=== PATIENT | female | born 2000 | race Caucasian/White ===

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

== ENCOUNTER 2018-03-07 13:58 | Emergency (ER) | payer BC, OTHER ==
[~2018-03-07] VITALS: Ht 160 cm; Wt 94.3 kg
[~2018-03-07 13:58] MED LIST changes: +FLUO10CA26 PO; -INSU100C; +INSU100C SQ; +INSU300I SQ; -LANTUS SOLOSTAR 100 UNIT/ML; +LIRA0.6P2 SQ
--- NOTE | 2018-03-07 14:19 | NUR ---
CIRO BOBBY AT BEDSIDE FOR MSE.
--- NOTE | 2018-03-07 14:24 | NUR ---
Patient discharged to home in stable conditon. Written and verbal after care instructions given. Patient verbalizes understanding of instructions. PT D/C W/ PRESCRIPTIONS. ALL BELONGINGS W/ PT. PT SELF-AMBULATED W/O DIFFICULTY.
[2018-03-07 14:26] VITALS: BP 120/86
== END 2018-03-07 14:26 | disposition home or self-care (01) ==
LOC: ER 13:58
DX: H66.93 Otitis media, unspecified, bilateral (principal); E10.9 Type 1 diabetes mellitus without complications; Z79.4 Long term (current) use of insulin; Z79.899 Other long term (current) drug therapy
CPT/HCPCS: A4663

== ENCOUNTER 2018-03-22 11:48 | Outpatient (CLI) | payer BC, OTHER ==
[2018-03-22 12:19] LABS: *BILIRUBIN,URIN NEGATIVE (NEGATIVE); *BLOOD, URINE 1+ (NEGATIVE); *CLARITY,URINE CLEAR (CLEAR); *COLOR,URINE YELLOW (YELLOW); *KETONES,URINE TRACE (NEGATIVE); *UROBILINOGEN,URINE 0.2 E.U./dl (NORMAL); BASOPHILS % (AUTO) 0.5 % (0.0-2.0); EOSINOPHILS # (AUTO) 0.1 K/uL (0.0-0.7); EOSINOPHILS % (AUTO) 0.6 % (0.0-7.0); HEMATOCRIT 40.7 % (31.2-41.9); HEMOGLOBIN 13.9 g/dL (10.9-14.3); LEUKOCYTE ESTERASE ,URINE NEGATIVE (NEGATIVE); LYMPHOCYTES # (AUTO) 1.6 K/uL (20.0-40.0); LYMPHOCYTES % (AUTO) 16.9 % (20.5-74.5); MEAN CORPUSCULAR HEMOGLOBIN 30.6 uug (24.7-32.8); MEAN CORPUSCULAR HGB CONC 34 g/dL (32.3-35.6); MEAN CORPUSCULAR VOLUME 89.6 fL (75.5-95.3); MONOCYTES # (AUTO) 0.5 K/uL (2.0-10.0); MONOCYTES % (AUTO) 5.5 % (0-11); NEUTROPHILS # (AUTO) 7.1 K/uL (1.8-8.9); NEUTROPHILS % (AUTO) 76.5 % (31.5-64.5); NITRITE, URINE NEGATIVE (NEGATIVE); PH,URINE 5.5 (5.0-8.0); PLATELET COUNT (AUTO) 337 K/uL (179-408); RED BLOOD CELL COUNT(AUTO) 4.54 MIL/uL (3.63-4.92); UGLUCOSE 2+ (NEGATIVE); WHITE BLOOD COUNT (AUTO) 9.2 K/uL (3.8-11.8)
[2018-03-22 12:22] LABS: BACTERIA,URINE FEW /HPF (NONE SEEN); RBC,URINE 0-3 /HPF (0-3); SQUAMOUS EPITHELIAL CELL,UR FEW /HPF (NONE SEEN); WBC,URINE 0-3 /HPF (0-3)
[2018-03-22 12:23] LABS: MUCUS,URINE MANY /LPF (0-FEW)
[2018-03-22 12:36] LABS: BILIRUBIN,TOTAL 0.2 mg/dL (0.2-1.0); CREATININE 0.8 mg/dL (0.6-1.3); POTASSIUM 4.4 mmol/L (3.5-5.1); TOTAL PROTEIN, SERUM 7.6 g/dL (6.4-8.2)
[2018-03-22 12:43] LABS: THYROID STIMULATING HORMONE 1.533 mIU/mL (0.358-3.740)
[2018-03-26 18:07] LABS: *VITAMIN D 25-OH VIT D 23 ng/mL (.); *VITAMIN D 25-OH, D2 <1.0 ng/mL (.); *VITAMIN D 25-OH, D3 23 ng/mL (.)
== END 2018-03-22 23:59 | disposition home or self-care (01) ==
LOC: LAB 11:48
PROVIDERS: ATTEND Internal Medicine Endocrinology, Diabetes & Metabolism
DX: Z00.00 Encounter for general adult medical examination without abnormal findings (principal); E78.5 Hyperlipidemia, unspecified; R82.90 Unspecified abnormal findings in urine; E05.90 Thyrotoxicosis, unspecified without thyrotoxic crisis or storm; D50.9 Iron deficiency anemia, unspecified; E10.65 Type 1 diabetes mellitus with hyperglycemia; E66.01 Morbid (severe) obesity due to excess calories; F32.9 Major depressive disorder, single episode, unspecified; E03.9 Hypothyroidism, unspecified; E55.9 Vitamin D deficiency, unspecified; Z79.4 Long term (current) use of insulin
CPT/HCPCS: 82043; 82570; 84443; 85025

== ENCOUNTER 2018-08-24 09:00 | Outpatient (CLI) | payer BC, OTHER ==
[2018-08-24 09:42] LABS: BASOPHILS % (AUTO) 0.5 % (0.0-2.0); EOSINOPHILS # (AUTO) 0.1 K/uL (0.0-0.7); EOSINOPHILS % (AUTO) 1.1 % (0.0-7.0); HEMATOCRIT 40.8 % (31.2-41.9); HEMOGLOBIN 13.6 g/dL (10.9-14.3); LYMPHOCYTES % (AUTO) 22.8 % (20.5-74.5); MEAN CORPUSCULAR HEMOGLOBIN 30.1 uug (24.7-32.8); MEAN CORPUSCULAR HGB CONC 33 g/dL (32.3-35.6); MEAN CORPUSCULAR VOLUME 90.5 fL (75.5-95.3); MONOCYTES # (AUTO) 0.6 K/uL (2.0-10.0); MONOCYTES % (AUTO) 6.6 % (0-11); PLATELET COUNT (AUTO) 262 K/uL (179-408); RED BLOOD CELL COUNT(AUTO) 4.51 MIL/uL (3.63-4.92); WHITE BLOOD COUNT (AUTO) 8.7 K/uL (3.8-11.8)
[2018-08-24 09:43] LABS: *BILIRUBIN,URIN NEGATIVE (NEGATIVE); *BLOOD, URINE NEGATIVE (NEGATIVE); *CLARITY,URINE CLEAR (CLEAR); *COLOR,URINE LIGHT YELLOW (YELLOW); *KETONES,URINE NEGATIVE (NEGATIVE); *UROBILINOGEN,URINE 0.2 E.U./dl (NORMAL); LEUKOCYTE ESTERASE ,URINE NEGATIVE (NEGATIVE); NITRITE, URINE NEGATIVE (NEGATIVE)
[2018-08-24 09:55] LABS: THYROID STIMULATING HORMONE 1.636 mIU/mL (0.358-3.740)
[2018-08-24 09:59] LABS: BILIRUBIN,TOTAL 0.3 mg/dL (0.2-1.0); CREATININE 0.9 mg/dL (0.6-1.3); POTASSIUM 4.2 mmol/L (3.5-5.1); TOTAL PROTEIN, SERUM 7.3 g/dL (6.4-8.2)
[2018-08-24 10:08] LABS: UGLUCOSE 3+ (NEGATIVE)
[2018-08-24 10:09] LABS: BACTERIA,URINE FEW /HPF (NONE SEEN); RBC,URINE 0-3 /HPF (0-3); SQUAMOUS EPITHELIAL CELL,UR FEW /HPF (NONE SEEN); WBC,URINE 0-3 /HPF (0-3)
[2018-08-31 13:08] LABS: *MICROALBUMIN, UR <3.0; CREATININE, URINE 58.7
[2018-08-31 13:10] LABS: MICROALBUMIN/CREAT RATIO, UR <5.1
== END 2018-08-24 23:59 | disposition home or self-care (01) ==
LOC: LAB 09:00
PROVIDERS: ATTEND Internal Medicine Endocrinology, Diabetes & Metabolism
DX: Z00.00 Encounter for general adult medical examination without abnormal findings (principal); I10 Essential (primary) hypertension; E78.5 Hyperlipidemia, unspecified; E10.65 Type 1 diabetes mellitus with hyperglycemia; D50.9 Iron deficiency anemia, unspecified; E05.90 Thyrotoxicosis, unspecified without thyrotoxic crisis or storm; E03.9 Hypothyroidism, unspecified; R82.90 Unspecified abnormal findings in urine; E66.01 Morbid (severe) obesity due to excess calories; F32.9 Major depressive disorder, single episode, unspecified; Z79.4 Long term (current) use of insulin
CPT/HCPCS: 36415; 82043; 82570; 84443; 84681; 85025

== ENCOUNTER 2018-09-10 01:50 | Emergency (ER) | payer BC, OTHER ==
[~2018-09-10] VITALS: Ht 160 cm; Wt 95.3 kg
--- NOTE | 2018-09-10 02:06 | NUR ---
DR. DIAZ AT BEDSIDE FOR MSE.
[2018-09-10] MEDS ORDERED: IBUPROFEN 800 MG TABLET ONE (02:14)
[2018-09-10] MEDS ORDERED: IBUPROFEN 800 MG TABLET PO ONE (02:15)
--- NOTE | 2018-09-10 02:16 | NUR ---
Patient discharged to home in stable conditon. Written and verbal after care instructions given. Patient verbalizes understanding of instructions. PATIENT LEFT WITH STABLE GAIT.
[2018-09-10 02:17] VITALS: BP 112/74
== END 2018-09-10 02:18 | disposition home or self-care (01) ==
LOC: ER 01:52
DX: H92.01 Otalgia, right ear (principal); E10.9 Type 1 diabetes mellitus without complications; Z79.4 Long term (current) use of insulin; Z79.899 Other long term (current) drug therapy
CPT/HCPCS: A4663

== ENCOUNTER 2018-09-10 18:42 | Emergency (ER) | payer BC, OTHER ==
[~2018-09-10] VITALS: Ht 160 cm; Wt 95.3 kg
--- NOTE | 2018-09-10 18:55 | NUR ---
PATIENT WAS MSE BY DR MARINELLI IN ROOM 05A. PATIENT A & O X3.
--- NOTE | 2018-09-10 19:10 | NUR ---
Patient discharged to home in stable conditon. Written and verbal after care instructions given. Patient verbalizes understanding of instructions.
== END 2018-09-10 19:14 | disposition home or self-care (01) ==
LOC: ER 18:42
DX: H60.91 Unspecified otitis externa, right ear (principal); E10.9 Type 1 diabetes mellitus without complications; Z79.4 Long term (current) use of insulin; Z79.899 Other long term (current) drug therapy
CPT/HCPCS: A4663

== ENCOUNTER → 2018-12-25 | Outpatient (CLI) | payer BC, OTHER ==
[2018-12-25 09:37] LABS: BASOPHILS % (AUTO) 0.4 % (0.0-2.0); EOSINOPHILS # (AUTO) 0.1 K/uL (0.0-0.7); EOSINOPHILS % (AUTO) 1.4 % (0.0-7.0); HEMOGLOBIN 13.6 g/dL (10.9-14.3); LYMPHOCYTES # (AUTO) 1.7 K/uL (20.0-40.0); MEAN CORPUSCULAR HEMOGLOBIN 30.4 uug (24.7-32.8); MEAN CORPUSCULAR HGB CONC 33 g/dL (32.3-35.6); MEAN CORPUSCULAR VOLUME 91.4 fL (75.5-95.3); MONOCYTES # (AUTO) 0.6 K/uL (2.0-10.0); MONOCYTES % (AUTO) 8.8 % (0-11); NEUTROPHILS # (AUTO) 4.8 K/uL (1.8-8.9); NEUTROPHILS % (AUTO) 66.4 % (31.5-64.5); PLATELET COUNT (AUTO) 285 K/uL (179-408); RED BLOOD CELL COUNT(AUTO) 4.48 MIL/uL (3.63-4.92); WHITE BLOOD COUNT (AUTO) 7.2 K/uL (3.8-11.8)
[2018-12-25 09:59] LABS: BILIRUBIN,TOTAL 0.3 mg/dL (0.2-1.0); CREATININE 0.7 mg/dL (0.6-1.3); POTASSIUM 4.3 mmol/L (3.5-5.1); TOTAL PROTEIN, SERUM 7.4 g/dL (6.4-8.2)
== END | disposition home or self-care (01) ==
LOC: LAB 09:11
PROVIDERS: ATTEND Internal Medicine Endocrinology, Diabetes & Metabolism
DX: E10.65 Type 1 diabetes mellitus with hyperglycemia (principal)
CPT/HCPCS: 36415; 85025

== ENCOUNTER 2019-02-11 13:38 | Emergency (ER) | END 2019-02-11 14:51 | disposition home or self-care (01) | DX: J21.9 Acute bronchiolitis, unspecified (principal); E10.9 Type 1 diabetes mellitus without complications; Z79.4 Long term (current) use of insulin; Z79.899 Other long term (current) drug therapy ==

== ENCOUNTER 2019-05-04 11:08 | Outpatient (CLI) | payer BC, OTHER ==
[2019-05-04 11:56] LABS: BASOPHILS # (AUTO) 0.1 K/uL (0.0-8.0); BASOPHILS % (AUTO) 0.7 % (0.0-2.0); EOSINOPHILS # (AUTO) 0.1 K/uL (0.0-0.7); EOSINOPHILS % (AUTO) 1.5 % (0.0-7.0); HEMATOCRIT 42.2 % (31.2-41.9); HEMOGLOBIN 14.2 g/dL (10.9-14.3); LYMPHOCYTES # (AUTO) 1.9 K/uL (20.0-40.0); LYMPHOCYTES % (AUTO) 24.5 % (20.5-74.5); MEAN CORPUSCULAR HEMOGLOBIN 30.7 uug (24.7-32.8); MEAN CORPUSCULAR HGB CONC 34 g/dL (32.3-35.6); MONOCYTES # (AUTO) 0.6 K/uL (2.0-10.0); MONOCYTES % (AUTO) 7.4 % (0-11); NEUTROPHILS % (AUTO) 65.9 % (31.5-64.5); PLATELET COUNT (AUTO) 323 K/uL (179-408); RED BLOOD CELL COUNT(AUTO) 4.64 MIL/uL (3.63-4.92); WHITE BLOOD COUNT (AUTO) 7.7 K/uL (3.8-11.8)
[2019-05-04 12:06] LABS: BILIRUBIN,DIRECT 0.1 mg/dL (0.0-0.2); BILIRUBIN,TOTAL 0.3 mg/dL (0.2-1.0); TOTAL PROTEIN, SERUM 7.5 g/dL (6.4-8.2)
[2019-05-04 12:19] LABS: THYROID STIMULATING HORMONE 1.474 mIU/mL (0.358-3.740)
[2019-05-05 09:12] LABS: HEPATITIS B SURFACE AB Non Reactive (.)
[2019-05-06 19:10] LABS: HERPES SIMPLEX VIRUS 1& 2 IGM <0.91 Ratio (0.00-0.90)
== END 2019-05-04 23:59 | disposition home or self-care (01) ==
LOC: LAB 11:08
PROVIDERS: ATTEND Obstetrics & Gynecology
DX: Z20.2 Contact with and (suspected) exposure to infections with a predominantly sexual mode of transmission (principal)
CPT/HCPCS: 36415; 84443; 85025; 86592; 86694; 86706; 86803; 87806

== ENCOUNTER 2019-08-25 15:46 | Emergency (ER) | payer BC, OTHER ==
[~2019-08-25] VITALS: Ht 160 cm; Wt 93.9 kg
--- NOTE | 2019-08-25 16:04 | NUR ---
Patient discharged to home in stable condition. Written and verbal after care instructions given. Patient verbalizes understanding of instructions. Stressed follow up or return to ER for worsening s/s.
== END 2019-08-25 16:04 | disposition home or self-care (01) ==
LOC: ER 15:48
DX: H66.91 Otitis media, unspecified, right ear (principal); E10.9 Type 1 diabetes mellitus without complications; Z79.4 Long term (current) use of insulin
CPT/HCPCS: A4663

== ENCOUNTER 2019-09-15 10:07 | Emergency (ER) | payer BC, OTHER ==
[~2019-09-15] VITALS: Ht 160 cm; Wt 93.0 kg
--- NOTE | 2019-09-15 10:10 | NUR ---
Dr. Quintero at bedside for MSE
--- NOTE | 2019-09-15 11:10 | NUR ---
Patient discharged to home in stable condition. Written and verbal after care instructions given. Patient verbalizes understanding of instructions. Stressed follow up or return to ER for worsening s/s. Patient ambulating with steady gait. NAD noted
[2019-09-15 11:12] VITALS: BP 126/73
== END 2019-09-15 11:10 | disposition home or self-care (01) ==
LOC: ER 10:07
DX: J06.9 Acute upper respiratory infection, unspecified (principal); E10.9 Type 1 diabetes mellitus without complications; Z20.828 Contact with and (suspected) exposure to other viral communicable diseases; Z79.4 Long term (current) use of insulin
CPT/HCPCS: 71045; 99284; U0003; A4663

== ENCOUNTER 2020-04-03 18:48 | Emergency (ER) | payer BC, OTHER ==
[~2020-04-03] VITALS: Ht 160 cm; Wt 99.8 kg
--- NOTE | 2020-04-03 19:10 | NUR ---
Dr. Cardenas at bedside for MSE.
[2020-04-03] MEDS ORDERED: IV NORMAL SALINE 1000 ML BAG IV ONE (19:15)
[2020-04-03 19:37] LABS: BASOPHILS % (AUTO) 0.5 % (0.0-2.0); EOSINOPHILS # (AUTO) 0.1 K/uL (0.0-0.7); EOSINOPHILS % (AUTO) 1.8 % (0.0-7.0); HEMATOCRIT 42.6 % (31.2-41.9); HEMOGLOBIN 14.4 g/dL (10.9-14.3); LYMPHOCYTES # (AUTO) 1.8 K/uL (20.0-40.0); LYMPHOCYTES % (AUTO) 26.9 % (20.5-51.5); MEAN CORPUSCULAR HEMOGLOBIN 30.6 uug (24.7-32.8); MEAN CORPUSCULAR HGB CONC 34 g/dL (32.3-35.6); MEAN CORPUSCULAR VOLUME 90.5 fL (75.5-95.3); MONOCYTES # (AUTO) 0.5 K/uL (2.0-10.0); MONOCYTES % (AUTO) 7.9 % (0.0-11.0); NEUTROPHILS # (AUTO) 4.3 K/uL (1.8-8.9); NEUTROPHILS % (AUTO) 62.9 % (38.5-71.5); PLATELET COUNT (AUTO) 307 K/uL (179-408); RED BLOOD CELL COUNT(AUTO) 4.71 MIL/uL (3.63-4.92); WHITE BLOOD COUNT (AUTO) 6.8 K/uL (3.8-11.8)
[2020-04-03 19:45] LABS: CREATININE 0.7 mg/dL (0.6-1.3)
[2020-04-03 19:55] LABS: BILIRUBIN,DIRECT 0.1 mg/dL (0.0-0.2); BILIRUBIN,TOTAL 0.2 mg/dL (0.2-1.0); TOTAL PROTEIN, SERUM 7.2 g/dL (6.4-8.2)
[2020-04-03 19:57] LABS: *BILIRUBIN,URIN NEGATIVE (NEGATIVE); *BLOOD, URINE NEGATIVE (NEGATIVE); *CLARITY,URINE CLEAR (CLEAR); *COLOR,URINE YELLOW (YELLOW); *KETONES,URINE NEGATIVE (NEGATIVE); *UROBILINOGEN,URINE 0.2 E.U./dl (NORMAL); LEUKOCYTE ESTERASE ,URINE NEGATIVE (NEGATIVE); NITRITE, URINE NEGATIVE (NEGATIVE)
[2020-04-03 19:58] LABS: *URINE HCG, QUAL NEGATIVE (NEGATIVE); UGLUCOSE 3+ (NEGATIVE)
[2020-04-03 20:07] LABS: BACTERIA,URINE NONE SEEN /HPF (NONE SEEN); SQUAMOUS EPITHELIAL CELL,UR FEW /HPF (NONE SEEN)
[2020-04-03 20:10] LABS: *AMPHETAMINE, URINE NEGATIVE (NEGATIVE); *CANNABINOID, URINE NEGATIVE (NEGATIVE); *COCCAINE, URINE NEGATIVE (NEGATIVE); *OPIATE, URINE NEGATIVE (NEGATIVE); *PHENCYCLIDINE SCREEN,URINE NEGATIVE (NEGATIVE)
[2020-04-03] MEDS ORDERED: FAMOTIDINE. 20 MG/2 ML VIAL IV ONE ×2 (20:15→20:23)
[2020-04-03] MEDS ORDERED: ONDANSETRON 4 MG/2 ML VIAL IV ONE (20:15)
[2020-04-03] MEDS ORDERED: ONDA4TAB5 PO (20:18)
[2020-04-03] MEDS ORDERED: ONDANSETRON 4 MG/2 ML VIAL ONE (20:24)
--- NOTE | 2020-04-03 21:15 | NUR ---
Patient discharged to home in stable condition. Written and verbal after care instructions given. Patient verbalizes understanding of instructions. Stressed follow up or return to ER for worsening s/s. Patient out of ER with steady gait, no acute signs of distress, VSS, all belongings taken, provided with copies of lab results.
[2020-04-03 21:16] VITALS: BP 120/65
== END 2020-04-03 21:17 | disposition home or self-care (01) ==
LOC: ER 18:51
DX: R11.0 Nausea (principal); Z20.828 Contact with and (suspected) exposure to other viral communicable diseases; E10.65 Type 1 diabetes mellitus with hyperglycemia; Z79.4 Long term (current) use of insulin
CPT/HCPCS: 36415; 80048; 80076; 80307; 81001; 83690; 84703; 85025; 87426; 96361; 96374; 96375; 99284; J2405; J3490; U0003; A4663; J7030

== ENCOUNTER 2020-05-24 14:59 | Outpatient (CLI) | payer BC, OTHER ==
[~2020-05-24 14:59] MED LIST changes: +ONDA4TAB5 PO
== END 2020-05-24 23:59 | disposition home or self-care (01) ==
LOC: LAB 14:59
DX: E10.65 Type 1 diabetes mellitus with hyperglycemia (principal); E10.69 Type 1 diabetes mellitus with other specified complication
CPT/HCPCS: 36415

== ENCOUNTER 2020-10-07 22:24 | Emergency (ER) | payer BC, OTHER ==
[~2020-10-07] VITALS: Ht 160 cm; Wt 99.8 kg
--- NOTE | 2020-10-07 22:33 | NUR ---
PT AMBULATED TO ER WITH C/O SORE THROAT. NO SOB OR LABORED BREATHING, AFEBRILE. A/O X4, CLEAR SPEECH, COMPLETE SENTENCES.
--- NOTE | 2020-10-07 22:37 | NUR ---
DR. DIAZ AT BEDSIDE, MSE IN PROGRESS.
[2020-10-07] MEDS ORDERED: AMOX500T2 PO (22:41)
--- NOTE | 2020-10-07 22:44 | NUR ---
Patient discharged to home in stable condition. A/O x4, no SOB or labored breathing. Denies any pain/discomfort. Written and verbal after care instructions given. Patient verbalizes understanding of instructions. Stressed follow up or return to ER for worsening s/s. Steagy gait. VSS.
[2020-10-07 22:46] VITALS: BP 135/84
== END 2020-10-07 22:46 | disposition home or self-care (01) ==
LOC: ER 22:25
DX: J02.9 Acute pharyngitis, unspecified (principal); E10.8 Type 1 diabetes mellitus with unspecified complications; Z79.4 Long term (current) use of insulin
CPT/HCPCS: A4663

== ENCOUNTER 2020-11-11 22:13 | Emergency (ER) | payer BC, OTHER ==
[~2020-11-11] VITALS: Ht 160 cm; Wt 97.1 kg
[~2020-11-11 22:13] MED LIST changes: +AMOX500T2 PO
--- NOTE | 2020-11-11 22:58 | NUR ---
Dr. Gurrola at bedside for MSE.
[2020-11-11] MEDS ORDERED: ERYTHROMYCIN BASE 250 MG TABLET.DR PO ONE (23:15)
[2020-11-11] MEDS ORDERED: OXYCODONE/APAP 5-325 MG TABLET PO ONE (23:15)
[2020-11-11] MEDS ORDERED: OXYC-128 PO (23:16)
[2020-11-11] MEDS ORDERED: ERYT-135 PO (23:16)
[2020-11-11] MEDS ORDERED: OXYCODONE/APAP 5-325 MG TABLET ONE (23:18)
--- NOTE | 2020-11-11 23:35 | NUR ---
Patient discharged to home in stable condition. Written and verbal after care instructions given. Patient verbalizes understanding of instructions. Stressed follow up or return to ER for worsening s/s. Patient out of ER with steady gait, no acute signs of distress, VSS, all belongings taken, instructed not to drive, to be driven home via private vehicle by boyfriend.
[2020-11-11 23:36] VITALS: BP 118/105
== END 2020-11-11 23:36 | disposition home or self-care (01) ==
LOC: ER 22:21
DX: L03.011 Cellulitis of right finger (principal); E10.9 Type 1 diabetes mellitus without complications; Z79.4 Long term (current) use of insulin; R03.0 Elevated blood-pressure reading, without diagnosis of hypertension
CPT/HCPCS: 87070; 87077; J8499

== ENCOUNTER → 2021-01-10 | Outpatient (CLI) | payer BC ==
[~2021-01-10] MED LIST changes: +ERYT-135 PO; +OXYC-128 PO
[2021-01-10 10:49] LABS: *BILIRUBIN,URIN NEGATIVE (NEGATIVE); *BLOOD, URINE NEGATIVE (NEGATIVE); *CLARITY,URINE CLEAR (CLEAR); *COLOR,URINE YELLOW (YELLOW); *KETONES,URINE TRACE (NEGATIVE); *UROBILINOGEN,URINE 0.2 E.U./dl (NORMAL); LEUKOCYTE ESTERASE ,URINE NEGATIVE (NEGATIVE); NITRITE, URINE NEGATIVE (NEGATIVE); PH,URINE 5.5 (5.0-8.0); UGLUCOSE 3+ (NEGATIVE)
[2021-01-10 11:06] LABS: *CREATININE,URINE 219.4 mg/dL (30-125)
[2021-01-10 11:11] LABS: MEAN CORPUSCULAR HEMOGLOBIN 31.4 uug (24.7-32.8); MEAN CORPUSCULAR VOLUME 92.2 fL (75.5-95.3); PLATELET COUNT (AUTO) 205 K/uL (179-408)
[2021-01-10 11:31] LABS: BILIRUBIN,TOTAL 0.3 mg/dL (0.2-1.0); CREATININE 0.9 mg/dL (0.6-1.3); POTASSIUM 4.3 mmol/L (3.5-5.1); TOTAL PROTEIN, SERUM 7.3 g/dL (6.4-8.2)
[2021-01-10 11:48] LABS: THYROID STIMULATING HORMONE 1.837 mIU/mL (0.358-3.740)
[2021-01-11 10:06] LABS: C-PEPTIDE, SERUM <0.1 ng/mL (1.1-4.4)
[2021-01-11 14:42] LABS: CREATININE, URINE 205.6
[2021-01-11 14:43] LABS: *MICROALBUMIN, UR 24.7
== END | disposition home or self-care (01) ==
LOC: LAB 10:20
PROVIDERS: ATTEND Internal Medicine Endocrinology, Diabetes & Metabolism
DX: E10.65 Type 1 diabetes mellitus with hyperglycemia (principal); Z79.4 Long term (current) use of insulin
CPT/HCPCS: 36415; 82043; 82306; 82570; 84443; 84681; 85025